=== PATIENT | male | born 1965 | race Caucasian/White ===

== ENCOUNTER 2017-09-17 06:56 | Day surgery (SDC) | payer MEDICAID ==
[2017-09-17] MEDS ORDERED: Lactated Ringers 1,000 ML IV SCH (07:15)
[2017-09-17] MEDS ORDERED: Propofol 200 MG/20 ML SDV IV ONE (08:30)
[2017-09-17] MEDS ORDERED: Midazolam 1 MG/ML 2 ML SDV IV ONE (08:30)
[2017-09-17] MEDS ORDERED: Simethicone Drops 40 MG/0.6 ML 30 ML Bottle ONE (08:41)
--- NOTE | 2017-09-17 08:59 | PCM.OPNOTE ---
- General Post-Op/Procedure Note Date of Surgery/Procedure: 09/17/17 Operative Procedure(s): c scope with bx Findings: ascending and descending colon polyp Pre Op Diagnosis: screening Post-Op Diagnosis: ascending and descending colon polyp Anesthesia Technique: MAC Primary Surgeon: [email or web address] Varma Anesthesia Provider: Mars Wolf Pathology: ascending and descending colon polyp Complications: None Condition: Good Free Text/Narrative:: see dictation #[id number]
--- NOTE | 2017-09-17 10:11 | OR ---
DATE OF OPERATION: 09/17/2017 SURGEON: Jacob Varma MD PROCEDURES PERFORMED: Colonoscopy with cold forceps biopsy. PREOPERATIVE DIAGNOSIS: Colon cancer screening. POSTOPERATIVE DIAGNOSIS: Polyp of the ascending and descending colon. INDICATIONS FOR PROCEDURE: This is a 52-year-old white male who presents for his initial screening colonoscopy. He was offered and accepted same. DESCRIPTION OF OPERATION: After an excellent IV sedation was administered, digital rectal exam was performed. No marked abnormality was noted. Flexible colonoscope was inserted and advanced to the cecum without difficulty. The following findings were noted. The prep was excellent. Ascending colon, a small polypoid lesion, biopsied with cold biopsy forceps and sent for permanent. Transverse colon, unremarkable. Descending colon, a small polypoid lesion, biopsied with cold biopsy forceps and sent for permanent. Sigmoid and rectum, unremarkable. Colon was deflated and scope was removed. The patient tolerated the procedure well. Followup colonoscopy on the basis of pathology reports. /[id number] /[id number]
== END 2017-09-17 10:00 | disposition home or self-care (01) ==
LOC: FB.SDS 06:56
PROVIDERS: ATTEND Surgery
DX: Z12.11 Encounter for screening for malignant neoplasm of colon (principal); D12.2 Benign neoplasm of ascending colon; K63.5 Polyp of colon; E66.01 Morbid (severe) obesity due to excess calories; Z79.899 Other long term (current) drug therapy; Z68.43 Body mass index [BMI] 50.0-59.9, adult
CPT/HCPCS: 88305; A9270-GY; J2250; J2704; J7120

== ENCOUNTER 2022-06-26 14:07 | Emergency (ER) | payer MEDICAID ==
[2022-06-26] MEDS ORDERED: Sodium Chloride 0.9% 10 ML Syringe FLUSH PRN (14:42)
[2022-06-26] MEDS ORDERED: Diltiazem 25 MG/5 ML SDV IVPUSH ONE ×2 (14:43→15:36)
[2022-06-26] MEDS ORDERED: Sodium Chloride 0.9% 1,000 ML IV SCH (14:45)
[2022-06-26 15:05] LABS: ESTIMATED GFR 101 mL/min (>60)
[2022-06-26] MEDS ORDERED: Sodium Chloride 0.9% 500 ML IV ONE (15:19)
[2022-06-26] MEDS ORDERED: Magnesium Sulfate/Water 2 GM in Premix Bag 1 BAG IV ONE (15:23)
[2022-06-26 16:03] LABS: CORONAVIRUS COVID-19 NAA NEGATIVE (NEGATIVE)
[2022-06-26] MEDS ORDERED: Iopamidol 755 Mg/ML 100 ML Bottle IV ONE (16:35)
[2022-06-26] MEDS ORDERED: Heparin Sodium 5,000 Units/ML Vial IVPUSH ONE (18:57)
[2022-06-26] MEDS ORDERED: Heparin Sodium/0.45% NaCl 500 ML IV SCH (19:00)
== END 2022-06-26 21:55 ==
LOC: FB.ED 14:07
DX: I48.91 Unspecified atrial fibrillation (principal); I10 Essential (primary) hypertension; E66.01 Morbid (severe) obesity due to excess calories; Z68.43 Body mass index [BMI] 50.0-59.9, adult; Z88.0 Allergy status to penicillin; Z20.822 Contact with and (suspected) exposure to COVID-19
CPT/HCPCS: 0240U; 36415; 71045; 71275; 80053; 80307; 81001; 83735; 83880; 84484; 85025; 85379; 93005; 93010; 96361; 96365; 96366; 96367; 96375; 96376; 99284; 99285-25; J1644; J3475; J3490; J7030; Q9967